=== PATIENT | male | born 1985 | race Caucasian/White ===

== ENCOUNTER 2021-01-29 15:33 | Inpatient (IN) | payer OTHER ==
[2021-01-29] MEDS ORDERED: MAGNESIUM HYDROX 2400MG/30ML ORAL SUSPENSION 30 ML CUP PO PRN (19:01)
[2021-01-29] MEDS ORDERED: MENTHOL/PHENOL 1 EACH UD MM PRN (19:01)
[2021-01-29] MEDS ORDERED: MAGNESIUM CITRATE 300 ML BOTTLE PO PRN (19:01)
[2021-01-29] MEDS ORDERED: ONDANSETRON *ODT* 4 MG TABLET SL PRN (19:01)
[2021-01-29] MEDS ORDERED: METHOCARBAMOL 500 MG TABLET PO PRN (19:01)
[2021-01-29] MEDS ORDERED: NICOTINE POLACRILEX 2 MG GUM BUC PRN (19:01)
[2021-01-29] MEDS ORDERED: ACETAMINOPHEN 325 MG TABLET (FP) PO PRN (19:01)
[2021-01-29] MEDS ORDERED: chlordiazePOXIDE HCL 25 MG CAPSULE PO PRN (19:01)
[2021-01-29 19:06] VITALS: BMI 24.9
[2021-01-29] MEDS: NICOTINE 21 MG/24 HOURS TOPICAL PATCH TD SCH (20:05)
[2021-01-29] MEDS: THIAMINE HCL 100 MG TABLET (FP) PO SCH (22:18)
[2021-01-29] MEDS: chlordiazePOXIDE HCL 25 MG CAPSULE PO SCH (22:18)
[2021-01-29] MEDS: hydrOXYzine PAMOATE 25 MG CAPSULE (FP) PO SCH (22:18)
[2021-01-29] MEDS: MELATONIN 5 MG TABLETS PO SCH (22:18)
[2021-01-29] MEDS: ACETAMINOPHEN 325 MG TABLET (FP) PO PRN (22:19)
[2021-01-29] MEDS: MAG HYDROX/AL HYDROX/SIMETH 30 ML UNIT-DOSE CUP PO PRN (22:20)
[2021-01-29] MEDS: BISMUTH SUBSALICYLATE 524 MG/30 ML UD PO PRN (23:32)
[2021-01-30] MEDS: hydrOXYzine PAMOATE 25 MG CAPSULE (FP) PO SCH ×5 (05:21→22:45)
[2021-01-30] MEDS: chlordiazePOXIDE HCL 25 MG CAPSULE PO SCH ×4 (05:22→22:45)
[2021-01-30] MEDS: IBUPROFEN 400 MG TABLET (FP) PO PRN ×2 (05:22→17:56)
[2021-01-30] MEDS: NICOTINE 21 MG/24 HOURS TOPICAL PATCH TD SCH (10:15)
[2021-01-30] MEDS: PRENATAL VITAMINS W/ FOLIC ACID TABLET (FP) PO SCH (10:15)
[2021-01-30] MEDS: MAG HYDROX/AL HYDROX/SIMETH 30 ML UNIT-DOSE CUP PO PRN ×2 (10:17→22:46)
[2021-01-30 12:43] LABS: HEMATOCRIT 33.6 % (35.4-49); HEMOGLOBIN 11.2 GM/dL (11.7-16.9); MCH 30.5 pg (25.7-33.7); MCHC 33.4 g/dl (32.0-35.9); MEAN CELL VOLUME 91.3 fl (80-96); MEAN PLT VOLUME 9.5 fl (7.5-11.1); PLATELET COUNT 230 K/MM3 (134-434); RBC 3.68 M/mm3 (4.00-5.60); RDW 13.4 % (11.9-15.9); WHITE BLOOD COUNT 3.9 K/mm3 (4.0-10.0)
[2021-01-30 12:47] LABS: POTASSIUM 3.7 mmol/L (3.5-5.1)
[2021-01-30 13:08] LABS: CALCIUM 8.8 mg/dL (8.5-10.1)
[2021-01-30 13:11] LABS: CREATININE 0.8 mg/dL (0.55-1.3)
[2021-01-30 13:13] LABS: ALBUMIN 3.4 g/dl (3.4-5.0)
[2021-01-30 13:14] LABS: BILIRUBIN,TOTAL 0.4 mg/dL (0.2-1)
[2021-01-30] MEDS ORDERED: MASKS NR ONE (17:52)
[2021-01-30] MEDS: MELATONIN 5 MG TABLETS PO SCH (22:45)
[2021-01-30] MEDS: THIAMINE HCL 100 MG TABLET (FP) PO SCH (22:45)
[2021-01-30] MEDS: ACETAMINOPHEN 325 MG TABLET (FP) PO PRN (22:47)
[2021-01-31] MEDS: hydrOXYzine PAMOATE 25 MG CAPSULE (FP) PO SCH ×5 (05:17→22:09)
[2021-01-31] MEDS: chlordiazePOXIDE HCL 25 MG CAPSULE PO SCH ×4 (05:17→22:10)
[2021-01-31] MEDS: ACETAMINOPHEN 325 MG TABLET (FP) PO PRN ×2 (08:42→18:09)
[2021-01-31] MEDS: PRENATAL VITAMINS W/ FOLIC ACID TABLET (FP) PO SCH (10:23)
[2021-01-31] MEDS: NICOTINE 21 MG/24 HOURS TOPICAL PATCH TD SCH (10:26)
[2021-01-31] MEDS: MAG HYDROX/AL HYDROX/SIMETH 30 ML UNIT-DOSE CUP PO PRN (18:09)
[2021-01-31] MEDS: THIAMINE HCL 100 MG TABLET (FP) PO SCH (22:09)
[2021-01-31] MEDS: MELATONIN 5 MG TABLETS PO SCH (22:09)
[2021-01-31] MEDS: BISMUTH SUBSALICYLATE 524 MG/30 ML UD PO PRN (22:11)
[2021-02-01] MEDS ORDERED: chlordiazePOXIDE HCL 10 MG CAPSULE PO PRN
[2021-02-01] MEDS: MAG HYDROX/AL HYDROX/SIMETH 30 ML UNIT-DOSE CUP PO PRN (03:45)
[2021-02-01] MEDS: chlordiazePOXIDE HCL 10 MG CAPSULE PO SCH ×2 (05:56→10:36)
[2021-02-01] MEDS: hydrOXYzine PAMOATE 25 MG CAPSULE (FP) PO SCH ×2 (05:56→10:33)
[2021-02-01 09:12] VITALS: BP 111/79; PULSE 85; TEMP 96.8
[2021-02-01] MEDS ORDERED: hydrOXYzine PAMOATE 25 MG CAPSULE (FP) PO PRN (10:11)
[2021-02-01] MEDS: PRENATAL VITAMINS W/ FOLIC ACID TABLET (FP) PO SCH (10:35)
[2021-02-01] MEDS: NICOTINE 21 MG/24 HOURS TOPICAL PATCH TD SCH (10:35)
[2021-02-02] MEDS ORDERED: chlordiazePOXIDE HCL 10 MG CAPSULE PO SCH (05:00)
[2021-02-03] MEDS ORDERED: chlordiazePOXIDE HCL 10 MG CAPSULE PO ONE (05:00)
== END 2021-02-01 12:52 | disposition left against medical advice (07) | DRG 770 ==
LOC: YASAS 15:33 → Y3N 18:56
PROVIDERS: ADMIT Allergy & Immunology; ATTEND Allergy & Immunology
PROC: HZ2ZZZZ Detoxification Services for Substance Abuse Treatment (ICD-10-PCS; principal; 2021-01-29)
DX: F10.230 Alcohol dependence with withdrawal, uncomplicated (principal); F14.10 Cocaine abuse, uncomplicated; F12.10 Cannabis abuse, uncomplicated; F17.210 Nicotine dependence, cigarettes, uncomplicated; K21.9 Gastro-esophageal reflux disease without esophagitis
CPT/HCPCS: 36415; 80053; 85027; 86780; 93005; 93010; C9803; U0003